=== PATIENT | female | born 1975 ===

== ENCOUNTER 2017-02-24 16:00 | Emergency (ER) | payer BC ==
[2017-02-24 16:00] VITALS: BMI 23.0
[2017-02-24 16:19] VITALS: BP 140/74; PULSE 94; RESP 16; TEMP 98.8; O2SAT 99
--- NOTE | 2017-02-24 16:40 | ED PDOC ---
Upper Extremity Pain/Injury Time Seen by Provider: 02/24/17 16:39 Chief Complaint (Nursing): Upper Extremity Problem/Injury Chief Complaint (Provider): left arm pain History Per: Patient (41 y/o female here with left upper arm pain that is ongoing x 2 weeks. Has had breast biopsy 02/08 and noted mild pain thereafter. Spoke with code enforcement inspector who told her to come to ED for evaluation of arm pain. [place] any neck pain. No falls.) Past Medical History Reviewed: Historical Data, Nursing Documentation, Vital Signs Vital Signs: Last Vital Signs Temp 98.8 F 02/24/17 16:15 Pulse 94 H 02/24/17 16:15 Resp 16 02/24/17 16:15 BP 140/74 02/24/17 16:15 Pulse Ox 99 02/24/17 16:15 - Medical History PMH: Hyperthyroidism (NO MEDICATION) Denies: Chronic Kidney Disease - Surgical History Surgical History: Tonsillectomy, - Family History Family History: States: No Known Family Hx - Home Medications Home Medications: Ambulatory Orders Medication Instructions Recorded Ibuprofen [Motrin] 600 mg PO Q8 PRN #21 tab 02/24/17 - Allergies Allergies/Adverse Reactions: Allergies Allergy/AdvReac Type Severity Reaction Status Date / Time No Known Allergies Allergy Verified 05/16/16 23:21 Review of Systems ROS Statement: Except As Marked, All Systems Reviewed And Found Negative Physical Exam - Reviewed Nursing Documentation Reviewed: Yes Vital Signs Reviewed: Yes - Physical Exam Appears: Positive for: Well, Non-toxic, No Acute Distress Head Exam: Positive for: ATRAUMATIC, NORMAL INSPECTION, NORMOCEPHALIC Skin: Positive for: Normal Color, Warm, DRY Eye Exam: Positive for: EOMI, Normal appearance, PERRL ENT: Positive for: Normal ENT Inspection Neck: Positive for: Normal, Painless ROM Cardiovascular/Chest: Positive for: Regular Rate, Rhythm Respiratory: Positive for: CNT, Normal Breath Sounds Gastrointestinal/Abdominal: Positive for: Normal Exam, Bowel Sounds, Soft Back: Positive for: Normal Inspection Extremity: Positive for: Normal ROM Neurologic/Psych: Positive for: Alert, Oriented - ECG O2 Sat by Pulse Oximetry: 99 - Progress ED Course And Treament: DUPLEX UPPER EXTREMITY: NEG FOR DVT Disposition - Clinical Impression Clinical Impression: Arm pain - Patient ED Disposition Is Patient to be Admitted: No - Disposition Referrals: [facility] [Outside] Disposition: Routine/Home Disposition Time: 18:01 Condition: FAIR Prescriptions: Ibuprofen [Motrin] 600 mg PO Q8 PRN #21 tab PRN Reason: Pain, Moderate (4-7) Instructions: Musculoskeletal Pain (ED) Forms: [facility] School/Work Excuse Print Language: LEBANESE
--- NOTE | 2017-02-26 13:44 | US ---
PROCEDURE: Left Upper Extremity Venous Doppler HISTORY: r/o dvt COMPARISON: None available. TECHNIQUE: Left upper extremity deep veins, including the lower internal jugular, subclavian, axillary and brachial veins, were evaluated flow, compressibility and respiratory phasicity. Radial and ulnar veins were also evaluated. Superficial basilic and cephalic veins were evaluated. FINDINGS: Normal flow, compressibility and respiratory phasicity was observed in the the left upper extremity deep veins. IMPRESSION: No evidence of deep venous thrombosis. Preliminary interpretation of this examination was reported by [facility] at 7:03 p.m. on 02/24/2017. There is concurrence of this report with the preliminary interpretation.
== END 2017-02-24 18:35 | disposition home or self-care (01) ==
LOC: H.ER 16:00
DX: M79.602 Pain in left arm (principal); E05.90 Thyrotoxicosis, unspecified without thyrotoxic crisis or storm

== ENCOUNTER 2017-10-08 22:43 | Emergency (ER) | payer BC ==
[2017-10-08 22:43] VITALS: BMI 23.0
[2017-10-08 22:55] VITALS: BP 143/84; PULSE 102; RESP 18; TEMP 98.5; O2SAT 98
--- NOTE | 2017-10-08 23:28 | ED PDOC ---
HPI: Female Pain Time Seen by Provider: 10/08/17 23:01 Chief Complaint (Nursing): Female Genitourinary Chief Complaint (Provider): : vaginal spotting History Per: Patient History/Exam Limitations: no limitations Onset/Duration Of Symptoms: Hrs Additional Complaint(s): 42 y/o female, approximately 9 weeks gestation, presents with vaginal spotting x 4 hours. Associated suprapubic "pressure". Denies fever, nausea/vomiting, chest pain, shortness of breath, palpitations, changes in bowel movements, urinary symptoms. Abnormal Vaginal Bleeding: Yes Last Menstral Period: 08/07/17 : 4 Para: 1 Miscarriage: 2 Past Medical History Reviewed: Historical Data, Nursing Documentation, Vital Signs Vital Signs: Last Vital Signs Temp 98.5 F 10/08/17 22:51 Pulse 102 H 10/08/17 22:51 Resp 18 10/08/17 22:51 BP 143/84 10/08/17 22:51 Pulse Ox 98 10/08/17 22:51 - Medical History PMH: Hyperthyroidism (NO MEDICATION) Denies: Chronic Kidney Disease - Surgical History Surgical History: Tonsillectomy, - Family History Family History: States: No Known Family Hx - Living Arrangements Living Arrangements: With Family - Home Medications Home Medications: Ambulatory Orders Medication Instructions Recorded Ibuprofen [Motrin] 600 mg PO Q8 PRN #21 tab 02/24/17 - Allergies Allergies/Adverse Reactions: Allergies Allergy/AdvReac Type Severity Reaction Status Date / Time No Known Allergies Allergy Verified 05/16/16 23:21 Review of Systems ROS Statement: Except As Marked, All Systems Reviewed And Found Negative Genitourinary Female: Positive for: Vaginal Bleeding Physical Exam - Reviewed Nursing Documentation Reviewed: Yes Vital Signs Reviewed: Yes - Physical Exam Appears: Positive for: Well, Non-toxic, No Acute Distress Head Exam: Positive for: ATRAUMATIC, NORMAL INSPECTION, NORMOCEPHALIC Skin: Positive for: Normal Color Eye Exam: Positive for: Normal appearance ENT: Positive for: Normal ENT Inspection Cardiovascular/Chest: Positive for: Regular Rate, Rhythm Respiratory: Positive for: Normal Breath Sounds Gastrointestinal/Abdominal: Positive for: Normal Exam Pelvic Exam: Positive for: External Exam Normal, No Cerv. 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 Negative for: Active Bleeding, Cervicitis, Discharge Back: Positive for: Normal Inspection Extremity: Positive for: Normal ROM Neurologic/Psych: Positive for: Alert, Oriented - Laboratory Results Result Diagrams: 10/08/17 23:36 10/08/17 23:36 - ECG O2 Sat by Pulse Oximetry: 98 - Progress ED Course And Treament: labs, urine, OB u/s EXAM: US , Transvaginal CLINICAL HISTORY: The patient is a 42 years female; Signs and symptoms; Lmp or gestational age ( in weeks): 08/07/17; Other: Spotting; ; Additional info: Vaginal spotting; Approv 9 weeks gestation 10/08/2017 11:04 PM TECHNIQUE: Real-time transvaginal obstetrical ultrasound of the maternal pelvis and a first trimester with image documentation. Transvaginal imaging was used for better evaluation of the fetus and adnexa. COMPARISON: No relevant prior studies available. FINDINGS: Gestation: Single live intrauterine with fetus corresponding to gestational age of 8 weeks and 6 days. Obtained heart rate is 159 bpm. Correlate clinically. Blossom- rump length is 2.4 cm. Uterus/cervix: See above Ovaries: Right ovary measures 3.1 x 2.5 x 2.6 cm. In the right ovary, there is 1.2 x 1.6 x 1.3 cm cystic structure/follicle. Vascular flow noted in the right ovary. Left ovary not visualized. Free fluid: No free fluid. IMPRESSION: 1. Single live intrauterine with fetus corresponding to gestational age of 8 weeks and 6 days. Obtained heart rate is 159 bpm. Correlate clinically. 2. Right ovary measures 3.1 x 2.5 x 2.6 cm. In the right ovary, there is 1.2 x 1.6 x 1.3 cm cystic structure/follicle. Vascular flow noted in the right ovary. Left ovary not visualized. Case discussed with Dr. Minor, patient's Story Analyst; agrees with plan to discharge and will f/up tomorrow. Patient educated on findings, discharged home. Return precautions given. Disposition - Clinical Impression Clinical Impression: Vaginal bleeding during - Patient ED Disposition Is Patient to be Admitted: No Counseled Patient/Family Regarding: Studies Performed, Diagnosis, Need For Followup - Disposition Disposition: Routine/Home Disposition Time: 01:31 Condition: STABLE Instructions: Bleeding With (DC) Print Language: ALBANIAN
[2017-10-08 23:42] LABS: BASO # 0.1 K/uL (0.0-0.2); EOS # 0.1 K/uL (0.0-0.7); EOS % 0.7 % (0.0-4.0); HEMOGLOBIN 14.5 g/dL (12.0-16.0); LYMPH # 2.6 K/uL (1.0-4.3); LYMPH % 22.3 % (20.0-40.0); MEAN CORPUSCULAR HEMOGLOBIN 30.3 pg (27.0-31.0); MEAN CORPUSCULAR HGB CONC 33.3 g/dL (33.0-37.0); MEAN PLATELET VOLUME 9.6 fl (7.2-11.7); MONO # 0.9 K/uL (0.0-0.8); MONO % 7.7 % (0.0-10.0); NEUT # 7.8 K/uL (1.8-7.0); NEUT % 68.3 % (50.0-75.0); NRBC % 0.5 % (0.0-0.0); RBC 4.77 Mil/uL (3.80-5.20); RED CELL DISTRIBUTION WIDTH 13.6 % (11.5-14.5); WHITE BLOOD COUNT 11.5 K/uL (4.8-10.8)
[2017-10-08 23:47] LABS: ALBUMIN 3.7 g/dL (3.5-5.0); ALT/SGPT 49 U/L (9-52); AST/SGOT 24 U/L (14-36); BLOOD UREA NITROGEN 17 mg/dl (7-17); CALCIUM 9.4 mg/dL (8.4-10.2); GFR AFRICAN-AMERICAN > 60; GFR NON-AFRICAN AMERICAN > 60
--- NOTE | 2017-10-09 11:31 | US ---
HISTORY: vaginal spotting; approv 9 weeks gestation COMPARISON: None available. TECHNIQUE: FINDINGS: LMP: 08/07/2017 Prior examinations from the current : None TECHNIQUE: Real-time 2D imaging, duplex and color Doppler. FINDINGS: Cardiac activity: Present Rate: 159 BPM Measurements: [place] rump length: 2.46 cm Gestational age based on CRL 9 weeks 1 day Gestational age 8 weeks 4 days based on gestational sac measurement 3.50 cm Gestational age derived from LMP: 9 weeks GUSTAVO based on LMP: 05/14/2018 GUSTAVO based on biometry: 05/15/2018 Gestational concordance documented Yolk sac identified Uterus: Unremarkable. No Cervical abnormalities: Negative examination for cervical dilatation or effacement. Closed cervix Subchorionic hemorrhage: None UTERUS: 7.3 x 8.1 x 11 cm. ADNEXA: Right: 2.5 x 2.6 x 3.1 cm. Simple cyst 1.2 x 1.6 cm Normal Doppler arterial waveform documented. Left: Obscured by overlying bowel gas. Non diagnostic assessment of left ovary Fluid in the cul-de-sac: None IMPRESSION: Eight weeks 6 days live intrauterine gestation. Gestational concordance documented. Limitations of the current examination: Nonvisualization left adnexa Concordant results (preliminary interpretation) provided by [facility]. Procedure Completed: 00:48 Preliminary ([facility]) Report: Dictated and Authenticated: 01:17 Final Interpretation: 11:26
== END 2017-10-09 01:43 | disposition home or self-care (01) ==
LOC: H.ER 22:43
DX: O46.91 Antepartum hemorrhage, unspecified, first trimester (principal); Z3A.08 8 weeks gestation of pregnancy

== ENCOUNTER 2018-01-04 18:59 | Emergency (ER) | payer BC ==
[2018-01-04 19:51] VITALS: BMI 26.4
[2018-01-04 20:32] LABS: BASO # 0.2 K/uL (0.0-0.2); BASO % 1.2 % (0.0-2.0); EOS # 0.1 K/uL (0.0-0.7); EOS % 0.5 % (0.0-4.0); HEMOGLOBIN 13.6 g/dL (12.0-16.0); LYMPH # 2.2 K/uL (1.0-4.3); MEAN CELL VOLUME 89.8 fl (81.0-99.0); MEAN CORPUSCULAR HEMOGLOBIN 30.1 pg (27.0-31.0); MEAN CORPUSCULAR HGB CONC 33.5 g/dL (33.0-37.0); MEAN PLATELET VOLUME 9.2 fl (7.2-11.7); MONO # 1.1 K/uL (0.0-0.8); MONO % 8.1 % (0.0-10.0); NEUT # 9.6 K/uL (1.8-7.0); NEUT % 73.2 % (50.0-75.0); NRBC % 0.1 % (0.0-0.0); RBC 4.53 Mil/uL (3.80-5.20); RED CELL DISTRIBUTION WIDTH 13.7 % (11.5-14.5); WHITE BLOOD COUNT 13.1 K/uL (4.8-10.8)
[2018-01-04 20:35] LABS: SQUAMOUS EPITHIAL 2 /hpf (0-5); URINE BILIRUBIN NEGATIVE (NEGATIVE); URINE BLOOD NEGATIVE (NEGATIVE); URINE CLARITY SLIGHTY-CLOUDY (Clear); URINE COLOR YELLOW (YELLOW); URINE GLUCOSE (UA) NEG (Normal); URINE LEUKOCYTE ESTERASE TRACE Leu/uL (Negative); URINE PROTEIN NEGATIVE (NEGATIVE); URINE UROBILINOGEN 0.2-1.0 mg/dL (0.2-1.0)
[2018-01-04 20:45] LABS: ALB/GLOB RATIO 0.9 (1.0-2.1); ALBUMIN 3.4 g/dL (3.5-5.0); ALT/SGPT 53 U/L (9-52); AST/SGOT 27 U/L (14-36); BLOOD UREA NITROGEN 9 mg/dl (7-17); CALCIUM 8.8 mg/dL (8.4-10.2); GFR AFRICAN-AMERICAN > 60; GFR NON-AFRICAN AMERICAN > 60; URIC ACID 2.8 mg/Dl (2.2-7.5)
--- NOTE | 2018-01-04 22:05 | OBHP ---
Datetime: 01/04/2018 20:07 IP Adm Impression: , intrauterine IP Admit Plan: Observation/Evaluation Admit Comment, IP Provider: 42 yo at 21+3 wks w EDC 05/14/2018 by LMP, c/o right flank pain since 1 am, reports that she feels like the pain may be coming and going, feels baby is mostly on the right side, not sure if she is having ctxns. Pt denies VB, LOF, and reports FM. Pt denies ROJAS, visu al changes, N/V, upper abd pain. 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 Pt reports that reports that she is doing well after drinking the fluids. The discomfort had gone down. Round ligament pain discussed. Plan: D/c Home F/U with Dr Rodríguez in 1 week. Pelvic pain instructions given to the patient. Extremities - PN: Normal Abdomen - PN: Normal Back - PN: Normal Neurologic - PN: Normal FHR - Baseline A Provider: 140s Membranes, Provider: Intact Comments, ACOG Physical Exam: DTRs 2-3+ EGA AdmitDate IP: 21.3 Vital Signs Provider: Reviewed IP Chief Complaint: Maternal discomfort NICHD Variability Prov Fetus A: Moderate 6-25bpm NICHD Decel Fetus A IP Provider: None Dilatation, Provider: 0 Effacement, Provider: 0 Station, Provider: -3 Genitourinary Exam: Normal
[2018-01-05 02:32] VITALS: BP 143/69; PULSE 95
== END 2018-01-04 21:40 | disposition home or self-care (01) ==
LOC: H.EROB2 18:59
DX: O26.92 Pregnancy related conditions, unspecified, second trimester (principal); R10.2 Pelvic and perineal pain; Z3A.21 21 weeks gestation of pregnancy

== ENCOUNTER 2018-03-11 13:00 | Emergency (ER) | payer BC ==
[2018-03-11 14:03] VITALS: BMI 26.7
[2018-03-11] MEDS ORDERED: Lactated Ringer's 1,000 ML IV SCH (14:15)
[2018-03-11 14:52] LABS: SQUAMOUS EPITHIAL 1 /hpf (0-5); URINE BILIRUBIN NEGATIVE (NEGATIVE); URINE BLOOD NEGATIVE (NEGATIVE); URINE CLARITY SLIGHTY-CLOUDY (Clear); URINE COLOR YELLOW (YELLOW); URINE GLUCOSE (UA) NEG (Normal); URINE LEUKOCYTE ESTERASE NEG Leu/uL (Negative); URINE PROTEIN NEGATIVE (NEGATIVE); URINE UROBILINOGEN 0.2-1.0 mg/dL (0.2-1.0)
--- NOTE | 2018-03-11 16:58 | OBHP ---
Datetime: 03/11/2018 16:52 IP Adm Impression: , intrauterine IP Admit Plan: Observation/Evaluation; Discharge home Admit Comment, IP Provider: [id number] edc 05/14/18 presents @ 30.6wks w/ c/o abd pressure. Denies ctxs, srom, vag bleeding or decreased fm. obhx sig for prior cd @ 36wks. pmhx: thyroid disorder which does not require medic pshx: cd nkda medic Pnv shx: denies etoh, illicit drugs or tobacco i: 30.6wks no evidence of labor p: ptl precuations d/c home Extremities - PN: Normal Lungs - PN: Normal Heart - PN: Normal Neurologic - PN: Normal HEENT - PN: Normal General - PN: Normal Comments, ACOG Physical Exam: no cervical change x3hrs EGA AdmitDate IP: 30.6 Vital Signs Provider: Within Normal Limits IP Chief Complaint: Maternal discomfort NICHD Variability Prov Fetus A: Moderate 6-25bpm NICHD Accel Fetus A IP Provider: [id number] FHR Category Provider Fetus A: Category I Dilatation, Provider: 0 Effacement, Provider: 0 Genitourinary Exam: Normal (Annotations: Data stored by CPN on behalf of user)
[2018-03-13 23:15] VITALS: BP 128/74; PULSE 87
== END 2018-03-11 16:56 | disposition home or self-care (01) ==
LOC: H.EROB2 13:00
DX: O26.893 Other specified pregnancy related conditions, third trimester (principal); Z3A.30 30 weeks gestation of pregnancy; R10.9 Unspecified abdominal pain

== ENCOUNTER 2018-04-21 20:52 | Inpatient (IN) | payer BC ==
[2018-04-21 22:00] VITALS: BMI 28.3
[2018-04-21 22:54] LABS: BASO % 0.5 % (0.0-2.0); EOS % 0.3 % (0.0-4.0); HEMOGLOBIN 14.4 g/dL (12.0-16.0); LYMPH # 2.3 K/uL (1.0-4.3); LYMPH % 25.1 % (20.0-40.0); MEAN CELL VOLUME 88.3 fl (81.0-99.0); MEAN CORPUSCULAR HEMOGLOBIN 29.4 pg (27.0-31.0); MEAN CORPUSCULAR HGB CONC 33.3 g/dL (33.0-37.0); MEAN PLATELET VOLUME 11.3 fl (7.2-11.7); MONO # 0.7 K/uL (0.0-0.8); MONO % 7.9 % (0.0-10.0); NEUT % 66.2 % (50.0-75.0); RBC 4.89 Mil/uL (3.80-5.20); RED CELL DISTRIBUTION WIDTH 15.5 % (11.5-14.5)
[2018-04-21 23:02] LABS: ALBUMIN 3.7 g/dL (3.5-5.0); ALT/SGPT 413 U/L (9-52); AST/SGOT 172 U/L (14-36); BLOOD UREA NITROGEN 15 mg/dl (7-17); CALCIUM 9.9 mg/dL (8.4-10.2); GFR NON-AFRICAN AMERICAN > 60; URIC ACID 6.1 mg/Dl (2.2-7.5)
[2018-04-22] MEDS ORDERED: cefOXitin IV 1 gm in Dextrose 1 GM/50 ML BAG IVPB ONE (00:43)
[2018-04-22] MEDS ORDERED: Lactated Ringer's 1,000 ML IV ONE (00:44)
[2018-04-22] MEDS ORDERED: Oxytocin 30 UNIT 30 UNITS/500 ML BAG IV ONE (00:46)
[2018-04-22] MEDS ORDERED: OXYTOCIN/0.9 % NS 20 UNIT/1,000 ML BAG IV ONE (00:46)
[2018-04-22] MEDS ORDERED: cefOXitin Sodium 1 GM in Sodium Chloride 0.9% 100 ML IVPB ONE (01:00)
[2018-04-22] MEDS ORDERED: Sodium Chloride 0.9% 10 ML IV ONE (01:14)
[2018-04-22] MEDS ORDERED: Phenylephrine 10 mg/ml Inj ONE (01:14)
[2018-04-22] MEDS ORDERED: Morphine 1 mg/ml preservative-free Inj(Duramorph) ONE (01:14)
[2018-04-22] MEDS ORDERED: ePHEDrine 50 mg/ml Inj ONE (01:14)
[2018-04-22] MEDS ORDERED: DiphenhydrAMINE 50 mg/ml Inj IVP PRN ×2 (02:14→06:10)
[2018-04-22] MEDS ORDERED: Oxycodone/Acetaminophen 5/325 mg Tab PO PRN (02:14)
--- NOTE | 2018-04-22 02:41 | OBADHP ---
Datetime: 04/21/2018 21:55 Admit Comment, IP Provider: [id number] IUP at 36+_w c/o CTX since 12pm Mre intanse during the say. No SROM. n VB. +FM POBGYNH: C/S x 1 PMH dnies PSH: C/S NKA PSoH: denies smoking ETOH drugs A: IUP at 36+w C/S x 1 early Labor AMA Elevated glucose (antepartum)_ PLAN: spoke with Dr Fisher...admit and will re-examine IVF codition explained to pt. She understands Pelvic Type - PN: Adequate Extremities - PN: Normal Abdomen - PN: Normal Back - PN: Normal Breast - PN: Normal Lungs - PN: Normal Heart - PN: Normal Thyroid - PN: Normal Neurologic - PN: Normal HEENT - PN: Normal General - PN: Normal Presentation-Admit: Vertex IP Fetus A Comments: Sono ceph Membranes, Provider: Intact Contraction Comments Provider: 4-5m Gestation - Est Wks by US: 36+ Pool Provider: Negative IP Hx Assessment: The History has been Reviewed and is Current Vital Signs Provider: Reviewed; Within Normal Limits IP Chief Complaint: Uterine contractions NICHD Decel Fetus A IP Provider: None Dilatation, Provider: 1-2 Effacement, Provider: 50 Station, Provider: -2 Genitourinary Exam: Normal DTRs - PN: Normal EGA AdmitDate IP: 36.5 IP Adm Impression: , intrauterine ; No Active Labor; Intact Membranes IP Admit Plan: Admit to unit Datetime: 03/11/2018 16:52 Comments, ACOG Physical Exam: no cervical dilation/effacemnt x3hrs NICHD Variability Prov Fetus A: Moderate 6-25bpm NICHD Accel Fetus A IP Provider: [id number] FHR Category Provider Fetus A: Category I Datetime: 01/04/2018 20:07 FHR - Baseline A Provider: 140s
--- NOTE | 2018-04-22 02:44 | OBDS ---
MATERNAL INFORMATION Maternal Complications: None Provider Comments: delivery of live baby boy 9/9 clear fluid cor with 3 vessels placenta anter ior and intact eb 800 LABOR SUMMARY EDC: 05/14/2018 00:00 No. Babies in Womb: 1 LABOR INFORMATION Reason for Induction: Not Applicable Group B Beta Strep: Negative Steroids Given: None Reason Steroids Not Administered: Not Applicable MEMBRANES Membranes Rupture Method: Artificial Rupture of Membranes: 04/22/2018 01:57 Length of Rupture (hrs): 0.02 Amniotic Fluid Color: Clear Amniotic Fluid Amount: Moderate Amniotic Fluid Odor: Normal STAGES OF LABOR Stage 3 hrs: 0 Stage 3 min: 2 VAGINAL DELIVERY Episiotomy: None Laceration Extension: N/A Laceration Type: None CSECTION DELIVERY CSection Incision: Lower Uterine Transverse Uterine Closure: Double-layer closure BABY A INFORMATION Delivery Date/Time: 04/22/2018 01:58 Method of Delivery: Born in Route : No : N/A Forceps: N/A Vacuum Extraction: N/A Shoulder Dystocia : No SHOULDER DYSTOCIA BABY A Delivery Date/Time: 04/22/2018 01:58 PRESENTATION/POSITION BABY A Presentation: Cephalic PLACENTA INFORMATION BABY A Placenta Delivery Time : 04/22/2018 02:00 Placenta Method of Delivery: Spontaneous Placenta Status: Delivered SCORES BABY A Heart Rate 1 min: >100 bpm Resp Effort 1 min: Good Cry Reflex Irritability 1 min: Cough or Sneeze or Pulls Away Muscle Tone 1 min: Active Motion Color 1 min: Body [place], Extremities Blue Resuscitation Effort 1 min: Tactile Stimulation SCORE 1 MIN: 9 Heart Rate 5 min: >100 bpm Resp Effort 5 min: Good Cry Reflex Irritability 5 min: Cough or Sneeze or Pulls Away Muscle Tone 5 min: Active Motion Color 5 min: Body [place], Extremities Blue Resuscitation Effort 5 min: N/A SCORE 5 MIN: 9 INFANT INFORMATION BABY A Gestational Age at Delivery: 36.0 Gestational Status: Infant Outcome : Liveborn Infant Condition : Stable Sex: Male IDENTIFICATION/MEDS BABY A ID Band Number: [id number] ID Band Location: Left Leg; Left Arm WEIGHT/LENGTH BABY A Infant Birthweight (gms): 2370 Weight (lb): 5 Infant Weight (oz): 4 CORD INFORMATION BABY A No. Cord Vessels: 3 Nuchal Cord : N/A Cord Blood Taken: Yes Suction: Mouth
[2018-04-22 06:30] LABS: HEMOGLOBIN 12.8 g/dL (12.0-16.0); MEAN CELL VOLUME 88.6 fl (81.0-99.0); MEAN CORPUSCULAR HGB CONC 32.7 g/dL (33.0-37.0); RBC 4.41 Mil/uL (3.80-5.20); RED CELL DISTRIBUTION WIDTH 14.8 % (11.5-14.5); WHITE BLOOD COUNT 11.3 K/uL (4.8-10.8)
[2018-04-22] MEDS ORDERED: Dextrose 50% SYRINGE Inj (50 ml) IV PRN (07:33)
[2018-04-22] MEDS ORDERED: Glucagon Recombinant 1 mg Inj IM PRN (07:33)
--- NOTE | 2018-04-22 08:24 | OBHP ---
Datetime: 04/21/2018 21:55 IP Adm Impression: , intrauterine ; No Active Labor; Intact Membranes IP Admit Plan: Admit to unit Admit Comment, IP Provider: [id number] IUP at 36+_w c/o CTX since 12pm More intense during the day. No SROM. n VB. +FM PNC: CP Dr Chaudhary POBGYNH: C/S x 1 PMH denies PSH: C/S NKA PSoH: denies smoking ETOH drugs A: IUP at 36+w C/S x 1 early Labor AMA Elevated glucose (antepartum) PLAN: spoke with Dr Fisher...admit and will re-examine IVF condition explained to pt. She understands Pelvic Type - PN: Adequate Extremities - PN: Normal Abdomen - PN: Normal Back - PN: Normal Breast - PN: Normal Lungs - PN: Normal Heart - PN: Normal Thyroid - PN: Normal Neurologic - PN: Normal HEENT - PN: Normal General - PN: Normal Presentation-Admit: Vertex IP Fetus A Comments: Sono ceph Membranes, Provider: Intact Contraction Comments Provider: 4-5m Gestation - Est Wks by US: 36+ Pool Provider: Negative IP Hx Assessment: The History has been Reviewed and is Current EGA AdmitDate IP: 36.5 Vital Signs Provider: Reviewed; Within Normal Limits IP Chief Complaint: Uterine contractions NICHD Decel Fetus A IP Provider: None Dilatation, Provider: 1-2 Effacement, Provider: 50 Station, Provider: -2 Genitourinary Exam: Normal DTRs - PN: Normal Datetime: 03/11/2018 16:52 Comments, ACOG Physical Exam: no cervical dilation/effacemnt x3hrs
[2018-04-22] MEDS ORDERED: Multivitamin With Minerals Tab PO SCH ×2 (09:00)
[2018-04-22] MEDS: Multivitamin With Minerals Tab PO SCH (10:07)
[2018-04-22] MEDS: Insulin Regular 100 units/ml SC SCH ×3 (12:23→22:10)
[2018-04-23] MEDS: Insulin Regular 100 units/ml SC SCH ×3 (07:29→18:54)
[2018-04-23] MEDS: Multivitamin With Minerals Tab PO SCH (09:28)
--- NOTE | 2018-04-23 09:46 | OBPPN ---
Datetime: 04/23/2018 09:41 PP Pain Prov: Within normal limits PP Nausea Prov: Denies PP Flatus Prov: Yes PP BM Prov: No PP Breasts Prov: Normal PP Heart Prov: Normal PP Lungs Prov: Normal PP Abdomen/Uterus Prov: Normal PP Lochia Prov: Normal PP Vulva/Perineum Prov: Normal PP CVA Tenderness Prov: Normal PP Extremities Prov: Normal PP C/S Incision Prov: Normal PP Progress Prov: Normal PP Impression Prov: Normal progression PP Plan Prov: Continue present management PP Progress Note Prov: stable pod1 continue present advance diet as tolerated may shower with assist ance IP PP Procedures: None Vital Signs Provider PP: Reviewed; Within Normal Limits
[2018-04-23] MEDS: Oxycodone/Acetaminophen 5/325 mg Tab PO PRN ×2 (14:16→21:51)
[2018-04-23] MEDS: Simethicone 80 mg Chewtab PO PRN (21:50)
[2018-04-24] MEDS: Insulin Regular 100 units/ml SC SCH ×3 (07:15→12:04)
[2018-04-24] MEDS: Oxycodone/Acetaminophen 5/325 mg Tab PO PRN ×2 (08:27→16:43)
[2018-04-24] MEDS: Multivitamin With Minerals Tab PO SCH (08:28)
--- NOTE | 2018-04-24 09:59 | OBPPN ---
Datetime: 04/24/2018 09:55 PP Pain Prov: Within normal limits PP Nausea Prov: Denies PP Flatus Prov: Yes PP BM Prov: No PP Breasts Prov: Normal PP Heart Prov: Normal PP Lungs Prov: Normal PP Abdomen/Uterus Prov: Normal PP Lochia Prov: Normal PP Vulva/Perineum Prov: Normal PP CVA Tenderness Prov: Normal PP Extremities Prov: Normal PP C/S Incision Prov: Normal PP Progress Prov: Normal PP Impression Prov: Normal progression PP Plan Prov: Continue present management PP Progress Note Prov: stable pod2 continue present care encourage ambulation IP PP Procedures: None Vital Signs Provider PP: Reviewed; Within Normal Limits
[2018-04-24] MEDS: Simethicone 80 mg Chewtab PO PRN (21:42)
[2018-04-25] MEDS: Oxycodone/Acetaminophen 5/325 mg Tab PO PRN (08:27)
[2018-04-25] MEDS: Multivitamin With Minerals Tab PO SCH (08:27)
--- NOTE | 2018-04-25 08:28 | OP ---
PROCEDURE DATE: 04/22/2018 PREOPERATIVE DIAGNOSES: Intrauterine at 36 weeks, previous section, in labor, gestational diabetes. POSTOPERATIVE DIAGNOSES: Intrauterine at 36 weeks, previous section, in labor, gestational diabetes. SURGEON: Main Fisher MD METAL PRODUCTS FABRICATOR ASSEMBLER: Chan Alcocer DO ANESTHESIOLOGIST: Tiago Alejandra MD ANESTHESIA: Spinal anesthesia. PROCEDURE: Repeat low transverse section. FINDINGS: Uterus anteverted 7 weeks and live baby boy, Apgars 9 and 9. Clear fluid. Cord with three vessels. Placenta, anterior tubes and ovaries within normal limits. ESTIMATED BLOOD LOSS: About 800 mL. DESCRIPTION OF PROCEDURE: With the patient in the supine position under spinal anesthesia, the patient was prepped and draped in the usual sterile manner. Dr. Alcocer assisting in the preparation of the surgery. After this was done, a Pfannenstiel incision was made and taken down to the fascia in layers. Fascia was incised and extended bilaterally. Dr. Alcocer doing his half and I am doing my half. After this was done, the muscle was from the fascia by sharp dissection. The peritoneum was then grasped and opened in the midline vertically. Upon entering the abdominopelvic cavity, paracolic gutters were packed with wet laps, pushing the bowel away from the operative field. Dr. Alcocer assisting each way of the surgery. After this was done, a low transverse incision was made in the uterus, extending bilaterally, curving upwards. Baby was removed without any complication and given to transmission design engineer who resuscitated. After this was done, the placenta was removed intact. The uterus was exteriorized, cleaned, and closed in two layers with #1 Vicryl running interlocking stitch, maintaining hemostasis. There were several fibroids noted during the procedure. After the uterus was closed and hemostasis maintained, the uterus was repositioned and the pelvic cavity was irrigated empirically. Following this, the peritoneum was grasped. Cavity was then closed using #1 Vicryl. The muscle was approximated with #[address] Alcocer assisting each way of the surgery. Following this, the fascia was closed, starting at each incision in the midline, Dr. Alcocer doing his half and I am doing my half. The subcutaneous layer was closed with 2-0 plain, and the skin was closed with guadalupe. Dr. Alcocer was there from the beginning to the end of the procedure. The patient tolerated the procedure well and was in satisfactory condition on the way to the recovery room. Main Fisher MD
--- NOTE | 2018-04-25 16:58 | OBPPN ---
Datetime: 04/25/2018 16:55 PP Pain Prov: Within normal limits PP Nausea Prov: Denies PP Flatus Prov: Yes PP BM Prov: Yes PP Breasts Prov: Normal PP Heart Prov: Normal PP Lungs Prov: Normal PP Abdomen/Uterus Prov: Normal PP Lochia Prov: Normal PP Vulva/Perineum Prov: Normal PP CVA Tenderness Prov: Normal PP Extremities Prov: Normal PP C/S Incision Prov: Normal PP Progress Prov: Normal PP Impression Prov: Normal progression PP Plan Prov: Continue present management PP Progress Note Prov: stable pod3 continue present care IP PP Procedures: None Vital Signs Provider PP: Reviewed; Within Normal Limits
--- NOTE | 2018-04-25 17:03 | OBDCSUM ---
Datetime: 04/25/2018 16:57 Discharged to, Provider: Home Follow up at, Provider: Disch Instr Activity: Bedrest; May be up to bathroom; May be up for meals; May Shower Disch Instr Diet: Regular Discharge Instructions, Provider: Specific instructions as noted Discharge Diagnosis, Provider: Labor Discharge Time: 04/25/2018 16:57 Follow up in weeks, Provider: 1 week in office Disch Referrals: None Disch Activity Restrictions: No exercising; No lifting; No driving; Minimize walking; Minimize stair -climbing; No sexual activity; Nothing in vagina - [place], tampons, douche Discharge Comment, Provider: me home [id number] call office if any problem Contraception after Delivery: Undecided Datetime: 04/25/2018 12:59 Discharged to, Provider: Home Follow up at, Provider: Dr. Fisher in one week. Disch Instr Activity: Normal activity; May be up to bathroom; May be up for meals; May Shower Disch Instr Diet: Regular Follow up in weeks, Provider: in one week Disch Referrals: None Disch Activity Restrictions: No lifting; No sexual activity; Nothing in vagina - [place], tampon s, douche Datetime: 03/11/2018 16:56 Disch Instr Activity: Normal activity; May be up to bathroom; May be up for meals; May Shower Disch Activity Restrictions: No lifting; No sexual activity; Nothing in vagina - [place], tampon s, douche
[2018-04-25 23:24] VITALS: BP 119/74; PULSE 88; RESP 20; TEMP 98.4; O2SAT 99
== END 2018-04-25 19:15 | disposition home or self-care (01) | DRG 765 ==
LOC: H.EROB2 20:52 → H.L&D 22:02 → H.OB/GYN 04-22 05:30
PROVIDERS: ADMIT Specialist; ATTEND Specialist
PROC: 4A1HXCZ Monitoring of Products of Conception, Cardiac Rate, External Approach (ICD-10-PCS; 2018-04-21)
PROC: 10D00Z1 Extraction of Products of Conception, Low, Open Approach (ICD-10-PCS; principal; 2018-04-22)
DX: O34.211 Maternal care for low transverse scar from previous cesarean delivery (principal); O60.14X0 Preterm labor third trimester with preterm delivery third trimester, not applicable or unspecified; O24.429 Gestational diabetes mellitus in childbirth, unspecified control; Z37.0 Single live birth; Z3A.36 36 weeks gestation of pregnancy; O09.523 Supervision of elderly multigravida, third trimester

== ENCOUNTER 2018-05-05 17:14 | Emergency (ER) | payer BC ==
[2018-05-05 17:14] VITALS: BMI 28.3
[2018-05-05 17:32] VITALS: TEMP 99
[2018-05-05] MEDS ORDERED: Oxycodone/Acetaminophen 5/325 mg Tab PO STA (18:00)
--- NOTE | 2018-05-05 18:02 | ED PDOC ---
HPI: Wound Care - HPI Chief Complaint (Provider): Wound check History Per: Patient Additional Complaint(s): 42 yo female, no PMH, presents to ED for wound check. Pt had a by Dr. Reese on 04/21/18, and had sutures removed 4 days ago. Site has been draining blood since that time. Pt reports itching and pain as well. no fever or chills. Mild vaginal bleeding at this time <Mishel Galvez - Last Filed: 05/05/18 20:07> <Valeria Dia - Last Filed: 05/09/18 18:36> - HPI Time Seen by Provider: 05/05/18 17:20 Chief Complaint (Nursing): Wound Check Past Medical History Reviewed: Nursing Documentation, Vital Signs Vital Signs: Last Vital Signs Temp 99.0 F 05/05/18 17:31 Pulse 93 H 05/05/18 17:31 Resp 18 05/05/18 17:31 BP 143/82 05/05/18 17:31 Pulse Ox 97 05/05/18 17:31 - Medical History PMH: Hyperthyroidism (NO MEDICATION) Denies: Chronic Kidney Disease - Surgical History Surgical History: Tonsillectomy, - Family History Family History: States: No Known Family Hx - Living Arrangements Living Arrangements: With Family - Social History Current smoker - smoking cessation education provided: No Alcohol: None Drugs: Denies <Mishel Galvez - Last Filed: 05/05/18 20:07> Vital Signs: Last Vital Signs Temp 99.0 F 05/05/18 19:58 Pulse 76 05/05/18 19:58 Resp 17 05/05/18 19:58 BP 140/79 05/05/18 19:58 Pulse Ox 97 05/05/18 20:20 <Valerai Dia - Last Filed: 05/09/18 18:36> - Home Medications Home Medications: Ambulatory Orders Medication Instructions Recorded Ibuprofen [Motrin] 600 mg PO Q8 PRN #21 tab 02/24/17 - Allergies Allergies/Adverse Reactions: Allergies Allergy/AdvReac Type Severity Reaction Status Date / Time No Known Allergies Allergy Verified 05/16/16 23:21 Review of Systems ROS Statement: Except As Marked, All Systems Reviewed And Found Negative Gastrointestinal: Positive for: Abdominal Pain <Mishel Galvez Last Filed: 05/05/18 20:07> Physical Exam - Reviewed Nursing Documentation Reviewed: Yes Vital Signs Reviewed: Yes - Physical Exam Appears: Positive for: Well, Non-toxic, No Acute Distress Head Exam: Positive for: ATRAUMATIC, NORMAL INSPECTION, NORMOCEPHALIC Skin: Positive for: Normal Color, Warm, DRY Eye Exam: Positive for: EOMI, Normal appearance, PERRL ENT: Positive for: Normal ENT Inspection Neck: Positive for: Normal, Painless ROM Cardiovascular/Chest: Positive for: Regular Rate, Rhythm Respiratory: Positive for: CNT, Normal Breath Sounds Gastrointestinal/Abdominal: Positive for: Tenderness (no fluctuance noted, (+) small 1 cm ) Back: Positive for: Normal Inspection Extremity: Positive for: Normal ROM Neurologic/Psych: Positive for: Alert, Oriented <Mishel Galvez Last Filed: 05/05/18 20:07> - Laboratory Results Result Diagrams: 05/05/18 18:10 05/05/18 18:10 - ECG O2 Sat by Pulse Oximetry: 97 <Mishel Galvez Last Filed: 05/05/18 20:07> - Laboratory Results Result Diagrams: 05/05/18 18:10 05/05/18 18:10 <Valeria Dia Last Filed: 05/09/18 18:36> Medical Decision Making Medical Decision Making: Medicated with percocet PO Labs resulted and reviewed with Pt and Dr. Reese US: Aprox 8.2 x 4.6 x 14.1 cm heterogeneous fluid collection anterior and superior to the uterus which may represent a hematoma or infectious or inflammatory process. Case discussed with Dr. Reese who advised Pt stable for discharge at this time, follow up in office tomorrow at 0830 Pt understands and will present to office tomorrow <Mishel Galvez Last Filed: 05/05/18 20:07> Disposition - Patient ED Disposition Is Patient to be Admitted: No - Disposition Disposition: Routine/Home Disposition Time: 20:11 <Mishel Galvez Last Filed: 05/05/18 20:07> <Valeria Dia Last Filed: 10/04/18 18:36> - Clinical Impression Clinical Impression: Hematoma, Visit for wound check - Disposition Referrals: Main Reese MD [Primary Care Provider] - Condition: STABLE Instructions: Wound Care (DC) Forms: [facility] ([place]) Addendum Addendum: 05/09/18 18:36 Reviewed chart and agree with PA assessment. <Valeria Dia - Last Filed: 05/09/18 18:36>
[2018-05-05 18:26] LABS: BASO # 0.1 K/uL (0.0-0.2); BASO % 1.2 % (0.0-2.0); EOS # 0.1 K/uL (0.0-0.7); EOS % 1.1 % (0.0-4.0); HEMOGLOBIN 8.7 g/dL (12.0-16.0); LYMPH # 1.7 K/uL (1.0-4.3); LYMPH % 14.3 % (20.0-40.0); MEAN CELL VOLUME 90.2 fl (81.0-99.0); MEAN CORPUSCULAR HEMOGLOBIN 28.9 pg (27.0-31.0); MEAN PLATELET VOLUME 7.6 fl (7.2-11.7); MONO # 0.8 K/uL (0.0-0.8); MONO % 6.5 % (0.0-10.0); NEUT % 76.9 % (50.0-75.0); RED CELL DISTRIBUTION WIDTH 16.9 % (11.5-14.5); WHITE BLOOD COUNT 11.7 K/uL (4.8-10.8)
[2018-05-05 18:33] LABS: VENOUS BLOOD GAS BASE EXCESS -1.3 mmol/L (0.0-2.0); VENOUS BLOOD GAS PCO2 43 mmHg (40-60); VENOUS BLOOD GAS PO2 33 mm/Hg (30-55); VENOUS BLOOD PH 7.36 (7.32-7.43)
[2018-05-05 18:35] LABS: ALB/GLOB RATIO 0.8 (1.0-2.1); ALBUMIN 3.2 g/dL (3.5-5.0); ALT/SGPT 42 U/L (9-52); AST/SGOT 33 U/L (14-36); BLOOD UREA NITROGEN 16 mg/dl (7-17); CALCIUM 8.6 mg/dL (8.4-10.2); GFR NON-AFRICAN AMERICAN > 60
[2018-05-05 19:59] VITALS: BP 140/79; PULSE 76; RESP 17
[2018-05-05 20:11] VITALS: O2SAT 97
--- NOTE | 2018-05-06 13:02 | US ---
Date of service: 05/05/2018 PROCEDURE: Soft tissue ultrasound limited HISTORY: fluid collection over c section incision COMPARISON: None TECHNIQUE: Standard protocol for this study/examination. FINDINGS: Area of concern midline corresponds to complex fluid collection including debris and septations measuring 4.6 x 8.2 x 14.1 cm. This appears interposed between the urinary bladder and the pelvic wall. The distance from the transducer to the anterior aspect of the collection is 2.3 cm. IMPRESSION: Anterior midline fluid collection likely postoperative seroma based on ultrasound characteristics.
== END 2018-05-05 20:10 | disposition home or self-care (01) ==
LOC: H.ER 17:14 → SUPCPDRO 17:14 → H.ER 20:10
DX: L76.32 Postprocedural hematoma of skin and subcutaneous tissue following other procedure (principal); E05.90 Thyrotoxicosis, unspecified without thyrotoxic crisis or storm